=== PATIENT | male | born 1970 | race Caucasian/White ===

== ENCOUNTER 2017-08-26 01:11 | Day surgery (SDC) | payer OTHER ==
[2017-08-26] MEDS ORDERED: KETOROLAC TROMETHAMINE 30 MG/ML SOL IM ONE (01:17)
[2017-08-26] MEDS ORDERED: KETOROLAC TROMETHAMINE 30 MG/ML SOL ONE (01:20)
[2017-08-26] MEDS ORDERED: HYDROMORPHONE 1 MG/ML SYRINGE ONE ×6 (01:42→12:44)
[2017-08-26] MEDS ORDERED: HYDROMORPHONE HCL 2 MG/ML SOL IM ONE (01:42)
[2017-08-26] MEDS ORDERED: HYDROMORPHONE HCL 2 MG/ML SOL IV ONE (02:18)
[2017-08-26] MEDS: SODIUM CHLORIDE 0.9% FLUSH 10 ML SOL IV PRN ×5 (02:20→10:39)
[2017-08-26] MEDS ORDERED: TDAP VACCINE 0.5 ML SUS IM ONE ×2 (02:37→02:38)
[2017-08-26] MEDS ORDERED: DIAZEPAM 5MG/ML SOL IV ONE (02:41)
[2017-08-26] MEDS ORDERED: ONDANSETRON 4 MG ODT BU PRN (02:47)
[2017-08-26] MEDS ORDERED: DIAZEPAM 5 MG TAB PO ONE (03:03)
[2017-08-26] MEDS ORDERED: DIAZEPAM 5 MG TAB ONE (03:04)
[2017-08-26] MEDS: HYDROMORPHONE HCL 2 MG/ML SOL IV PRN ×2 (04:56→07:44)
[2017-08-26] MEDS ORDERED: HYDROMORPHONE HCL 2 MG/ML SOL ONE (07:38)
[2017-08-26] MEDS ORDERED: ONDANSETRON HCL 4 MG/2 ML SOL IV PRN (10:10)
[2017-08-26] MEDS ORDERED: PANTOPRAZOLE SODIUM 40 MG/10 ML PDS ONE (10:30)
[2017-08-26] MEDS ORDERED: ONDANSETRON HCL 4 MG/2 ML SOL ONE (10:30)
[2017-08-26] MEDS: PANTOPRAZOLE SODIUM 40 MG/10 ML PDS IV SCH (10:39)
[2017-08-26] MEDS ORDERED: HYDROMORPHONE 1 MG/ML SYRINGE IV PRN (10:45)
[2017-08-26] MEDS: LACTATED RINGERS 1,000 ML IV SCH ×2 (11:00→20:19)
[2017-08-26 11:20] LABS: CALCIUM 7.6 mg/dl (8.5-10.1); POTASSIUM 3.9 mMol/L (3.5-5.1)
[2017-08-26 11:22] LABS: BASOPHILS % (AUTO) 1 % (0-3); EOSINOPHILS % (AUTO) 2 % (0-9); HEMATOCRIT 39 % (39-53); MEAN CORPUSCULAR VOLUME 85 fL (80-100); MONOCYTES % (AUTO) 11.1 % (0-12); NEUTROPHILS % (AUTO) 57.3 % (37-80)
[2017-08-26] MEDS ORDERED: LIDOCAINE HCL 1% MPF SOL ONE (12:43)
[2017-08-26] MEDS ORDERED: PROPOFOL 500 MG/50 ML EMU IV ONE (12:43)
[2017-08-26] MEDS ORDERED: METOCLOPRAMIDE HYDROCHLORIDE 5 MG/ML SOL ONE (12:43)
[2017-08-26] MEDS ORDERED: DEXAMETHASONE 20 MG/5 ML (4 MG/ML SOL) ONE (12:43)
[2017-08-26] MEDS ORDERED: MIDAZOLAM 2 MG/2 ML SOL ONE (12:44)
[2017-08-26] MEDS ORDERED: FENTANYL 100MCG/2ML SOL ONE (12:44)
[2017-08-26] MEDS ORDERED: KETAMINE HYDROCHLORIDE 50 MG/ML SOL ONE (12:46)
[2017-08-26] MEDS ORDERED: LIDOCAINE HCL 2% MPF SOL ONE (13:05)
[2017-08-26] MEDS ORDERED: BUPIVACAINE HCL 0.5% MPF 10 ML SOL ONE (13:05)
[2017-08-26] MEDS ORDERED: CEFAZOLIN SODIUM 1 GM PDS ONE ×2 (14:22→18:59)
[2017-08-26] MEDS ORDERED: MORPHINE SULFATE 10 MG/ML SOL IM PRN (16:35)
[2017-08-26] MEDS: APAP/OXYCODONE 325/5 TAB PO PRN (20:21)
[2017-08-26] MEDS ORDERED: APAP/OXYCODONE 325/5 TAB ONE (20:21)
[2017-08-26] MEDS ORDERED: CEFAZOLIN SODIUM 1 GM PDS 1 GM in SODIUM CHLORIDE 0.9% 100 ML 100 ML IV SCH (22:00)
[2017-08-27] MEDS ORDERED: APAP/OXYCODONE 325/5 TAB ONE ×3 (00:26→10:33)
[2017-08-27] MEDS: APAP/OXYCODONE 325/5 TAB PO PRN ×3 (00:29→10:36)
[2017-08-27] MEDS: SODIUM CHLORIDE 0.9% FLUSH 10 ML SOL IV PRN (04:07)
[2017-08-27] MEDS: LACTATED RINGERS 1,000 ML IV SCH (07:45)
[2017-08-27] MEDS ORDERED: PANTOPRAZOLE SODIUM 40 MG/10 ML PDS ONE (10:15)
[2017-08-27] MEDS: PANTOPRAZOLE SODIUM 40 MG/10 ML PDS IV SCH (10:26)
[2017-08-27 13:35] VITALS: BP 128/79; PULSE 75; RESP 16; TEMP 97.6; O2SAT 96
== END 2017-08-27 14:55 | disposition home or self-care (01) ==
LOC: ED 01:11 → SURG 13:45 → EDSTATUS 13:48 → SURG 08-27 14:55
PROVIDERS: ATTEND Orthopaedic Surgery
DX: S93.315A Dislocation of tarsal joint of left foot, initial encounter (principal); X50.1XXA Overexertion from prolonged static or awkward postures, initial encounter; R19.5 Other fecal abnormalities
CPT/HCPCS: 36415; 73610; 73620; 73700; 76000; 80048; 85025; 90471; 90715; 93005; 96365; 96366; 96372; 96374; 96375; 99284; 99285; J0690; J1100; J1170; J1885; J2250; J2405; J2765; J3010; A6402; J2001; J2704

== ENCOUNTER 2017-09-02 10:20 | Outpatient (CLI) | payer OTHER ==
[2017-08-27 13:35] VITALS: O2SAT 96
== END 2017-09-02 10:21 | disposition home or self-care (01) ==
LOC: CONVCARE 10:20
PROVIDERS: ATTEND Orthopaedic Surgery
DX: S93.335D Other dislocation of left foot, subsequent encounter (principal); Z98.890 Other specified postprocedural states
CPT/HCPCS: 73620

== ENCOUNTER 2017-09-13 16:17 | Emergency (ER) | payer OTHER ==
[2017-09-13 16:28] VITALS: TEMP 98
[2017-09-13] MEDS ORDERED: HYDROMORPHONE 1 MG/ML SYRINGE ONE (16:38)
[2017-09-13] MEDS ORDERED: HYDROMORPHONE 1 MG/ML SYRINGE IV PRN (16:40)
[2017-09-13] MEDS ORDERED: LORAZEPAM 2 MG/ML SOL IV ONE (16:53)
[2017-09-13] MEDS ORDERED: LORAZEPAM 2 MG/ML SOL ONE (16:53)
[2017-09-13] MEDS ORDERED: PANTOPRAZOLE SODIUM 40 MG/10 ML PDS ONE (16:54)
[2017-09-13] MEDS ORDERED: PANTOPRAZOLE SODIUM 40 MG/10 ML PDS IV ONE (16:55)
[2017-09-13] MEDS ORDERED: HYDROGEN PEROXIDE 240 ML SOL TOP ONE (16:55)
[2017-09-13 20:33] VITALS: RESP 20
[2017-09-13 20:37] VITALS: PULSE 104; O2SAT 94
[2017-09-13 20:38] VITALS: BP 120/86
== END 2017-09-13 19:56 | disposition home or self-care (01) ==
LOC: ED 16:17
DX: M79.672 Pain in left foot (principal); Z98.890 Other specified postprocedural states; M25.572 Pain in left ankle and joints of left foot
CPT/HCPCS: 73630; 99285; J2060; A9270-GY; J1170

== ENCOUNTER → 2017-09-16 | Outpatient (CLI) | payer OTHER ==
[2017-09-13 20:37] VITALS: O2SAT 94
== END | disposition home or self-care (01) ==
LOC: CONVCARE 10:00
PROVIDERS: ATTEND Orthopaedic Surgery
DX: S92.902D Unspecified fracture of left foot, subsequent encounter for fracture with routine healing (principal)
CPT/HCPCS: 73630

== ENCOUNTER 2017-10-07 10:03 | Outpatient (CLI) | payer OTHER ==
[2017-09-13 20:37] VITALS: O2SAT 94
== END 2017-10-07 10:04 | disposition home or self-care (01) ==
LOC: CONVCARE 10:03
PROVIDERS: ATTEND Orthopaedic Surgery
DX: S93.305 Unspecified dislocation of left foot (principal); Z47.2 Encounter for removal of internal fixation device
CPT/HCPCS: 73630

== ENCOUNTER 2017-10-28 11:42 | Outpatient (CLI) | payer OTHER ==
[2017-09-13 20:37] VITALS: O2SAT 94
== END 2017-10-28 11:43 | disposition home or self-care (01) ==
LOC: CONVCARE 11:42
PROVIDERS: ATTEND Orthopaedic Surgery
DX: S93.315D Dislocation of tarsal joint of left foot, subsequent encounter (principal); M21.42 Flat foot [pes planus] (acquired), left foot; M21.6X2 Other acquired deformities of left foot; M85.872 Other specified disorders of bone density and structure, left ankle and foot
CPT/HCPCS: 73620

== ENCOUNTER 2017-11-25 09:48 | Outpatient (CLI) | payer OTHER ==
[2017-09-13 20:37] VITALS: O2SAT 94
== END 2017-11-25 09:49 | disposition home or self-care (01) ==
LOC: RAD 09:48
PROVIDERS: ATTEND Orthopaedic Surgery
DX: Z47.89 Encounter for other orthopedic aftercare (principal); M85.872 Other specified disorders of bone density and structure, left ankle and foot; Z98.890 Other specified postprocedural states
CPT/HCPCS: 73630

== ENCOUNTER 2018-01-20 08:37 | Outpatient (CLI) | payer OTHER ==
[2017-09-13 20:37] VITALS: O2SAT 94
== END 2018-01-20 08:38 | disposition home or self-care (01) ==
LOC: CONVCARE 08:37
PROVIDERS: ATTEND Orthopaedic Surgery
DX: S92.212D Displaced fracture of cuboid bone of left foot, subsequent encounter for fracture with routine healing (principal); Z98.890 Other specified postprocedural states
CPT/HCPCS: 73630

== ENCOUNTER 2018-04-21 08:48 | Outpatient (CLI) | payer OTHER ==
[2017-09-13 20:37] VITALS: O2SAT 94
== END 2018-04-21 08:49 | disposition home or self-care (01) ==
LOC: CONVCARE 08:48
PROVIDERS: ATTEND Orthopaedic Surgery
DX: Z98.890 Other specified postprocedural states (principal); Z47.89 Encounter for other orthopedic aftercare
CPT/HCPCS: 73630